=== PATIENT | female | born 1960 | race Hispanic/Latino ===

== ENCOUNTER → 2022-07-23 09:00 | Outpatient (CLI) | payer OTHER, SELFPAY ==
[2022-07-24 04:26] LABS: Hemoglobin A1C% w Est Avg Glu 5.5 % (4.0-6.0)
[2022-07-24 04:41] LABS: Alanine Aminotransferase 21 IU/L (<35); Albumin 4.4 g/dL (3.5-5.0); Albumin Globulin Ratio 1.5 (1.0-2.8); Alkaline Phosphatase 80 U/L (38-126); Aspartate Aminotransferase 26 IU/L (14-36); BUN Creatinine Ratio 17.2 (6-22); Bilirubin Total 0.6 mg/dL (0.2-1.3); Blood Urea Nitrogen 15 mg/dL (7-17); Calcium 9.5 mg/dL (8.4-10.2); Carbon Dioxide 27 mmol/L (22-32); Chloride 104 mmol/L (98-107); Cholesterol 239 mg/dL (140-199); Estimated Glomerular Filt Rate > 60 mL/min (>60); Glucose 97 mg/dL (80-110); HDL Cholesterol 59 mg/dL (40-60); HEMOLYSIS < 15 (0-50); LDL Cholesterol Calculated 163 mg/dL (<100); Potassium 4.2 mmol/L (3.4-5.1); Sodium 139 mmol/L (137-145); Total Protein 7.4 g/dL (6.3-8.2); Triglycerides 85 mg/dL (35-150)
== END ==
PROVIDERS: PCP Physician Assistant; Visit Provider Physician Assistant
DX: I10 Essential (primary) hypertension (principal); Z13.1 Encounter for screening for diabetes mellitus; Z13.220 Encounter for screening for lipoid disorders
CPT/HCPCS: 80053; 80061; 83036

== ENCOUNTER → 2023-08-02 08:24 | Outpatient (CLI) | payer OTHER, SELFPAY ==
[2023-08-02 19:49] LABS: Add Manual Diff / Slide Review NO; Basophils Absolute Auto 0 /uL (0-100); Basophils Percent Auto 0.7 % (0-2); Eosinophils Absolute Auto 100 /uL (0-450); Eosinophils Percent Auto 3.2 % (2-4); Hemoglobin 13.9 g/dL (12.0-16.0); Lymphocytes Absolute Auto 1100 /uL (1100-4500); Lymphocytes Percent Auto 28.7 % (25-40); Mean Corpuscular HGB Conc 33.9 % (30-36); Mean Corpuscular Hemoglobin 31.7 PG (26-34); Mean Corpuscular Volume 93.7 fL (80-100); Monocytes Absolute Auto 300 /uL (0-900); Monocytes Percent Auto 8.5 % (3-14); Neutrophils Absolute Auto 2200 /uL (1500-7000); Neutrophils Percent Auto 58.9 % (50-75); Platelet Count 206 X10^3/uL (150-400); Red Blood Cell Count 4.38 X10^6/uL (4.0-5.2); Red Cell Distribution Width 12.7 % (11.6-14.8); White Blood Cell Count 3.8 X10^3/uL (4.5-11.0)
[2023-08-02 19:52] LABS: Alanine Aminotransferase 24 IU/L (<35); Albumin 4.6 g/dL (3.5-5.0); Albumin Globulin Ratio 1.3 (1.0-2.8); Alkaline Phosphatase 88 U/L (38-126); Aspartate Aminotransferase 29 IU/L (14-36); BUN Creatinine Ratio 20.5 (6-22); Bilirubin Total 0.5 mg/dL (0.2-1.3); Blood Urea Nitrogen 16 mg/dL (7-17); Carbon Dioxide 28 mmol/L (22-32); Chloride 105 mmol/L (98-107); Cholesterol 251 mg/dL (140-199); Estimated Glomerular Filt Rate > 60 mL/min (>60); Globulin 3.5 g/dL (1.7-4.1); Glucose 97 mg/dL (80-110); HDL Cholesterol 73 mg/dL (40-60); HEMOLYSIS < 15 (0-50); LDL Cholesterol Calculated 152 mg/dL (<100); Potassium 3.8 mmol/L (3.4-5.1); Sodium 141 mmol/L (137-145); Total Protein 8.1 g/dL (6.3-8.2); Triglycerides 128 mg/dL (35-150)
== END ==
PROVIDERS: PCP Physician Assistant; Visit Provider Physician Assistant
DX: I10 Essential (primary) hypertension (principal); Z13.6 Encounter for screening for cardiovascular disorders; Z79.899 Other long term (current) drug therapy
CPT/HCPCS: 80053; 80061; 85025

== ENCOUNTER → 2024-08-25 08:10 | Outpatient (CLI) | payer OTHER, SELFPAY ==
[2024-08-25 19:02] LABS: Alanine Aminotransferase 26 IU/L (<35); Albumin 4.5 g/dL (3.5-5.0); Albumin Globulin Ratio 1.4 (1.0-2.8); Alkaline Phosphatase 89 U/L (38-126); Aspartate Aminotransferase 34 IU/L (14-36); Bilirubin Total 0.6 mg/dL (0.2-1.3); Blood Urea Nitrogen 17 mg/dL (7-17); Calcium 9.9 mg/dL (8.4-10.2); Carbon Dioxide 27 mmol/L (22-32); Chloride 104 mmol/L (98-107); Cholesterol 261 mg/dL (140-199); Estimated Glomerular Filt Rate > 60 mL/min (>60); Globulin 3.3 g/dL (1.7-4.1); Glucose 97 mg/dL (80-110); HDL Cholesterol 73 mg/dL (40-60); HEMOLYSIS 27 (0-50); LDL Cholesterol Calculated 171 mg/dL (<100); Potassium 4.5 mmol/L (3.4-5.1); Sodium 138 mmol/L (137-145); Total Protein 7.8 g/dL (6.3-8.2); Triglycerides 86 mg/dL (35-150)
[2024-08-25 19:31] LABS: TSH w/ Reflex to FT4 5.94 uIU/mL (0.47-4.68)
[2024-08-25 20:10] LABS: Free T4, Direct Thyroxine 1.05 ng/dL (0.78-2.19)
[2024-08-26 19:26] LABS: Hep C Virus Ab w/Reflex Quant NEGATIVE s/c (NEGATIVE)
== END ==
PROVIDERS: PCP Physician Assistant; Referring Provider Physician Assistant; Visit Provider Physician Assistant
DX: Z00.01 Encounter for general adult medical examination with abnormal findings (principal); I10 Essential (primary) hypertension; D72.819 Decreased white blood cell count, unspecified; Z12.11 Encounter for screening for malignant neoplasm of colon; E78.00 Pure hypercholesterolemia, unspecified; Z11.59 Encounter for screening for other viral diseases; F41.9 Anxiety disorder, unspecified; F51.01 Primary insomnia
CPT/HCPCS: 80053; 80061; 84439; 84443; 86803

== ENCOUNTER → 2024-12-11 14:14 | Outpatient (CLI) | payer OTHER, SELFPAY | PROVIDERS: PCP Physician Assistant; Visit Provider Family Medicine | DX: R10.9 Unspecified abdominal pain (principal); R30.0 Dysuria | CPT/HCPCS: 87086 ==

== ENCOUNTER → 2024-12-13 08:18 | Outpatient (CLI) | payer OTHER, SELFPAY ==
[2024-12-13 21:50] LABS: Add Manual Diff / Slide Review NO; Basophils Absolute Auto 0 /uL (0-100); Basophils Percent Auto 0.4 % (0-2); Eosinophils Absolute Auto 100 /uL (0-450); Eosinophils Percent Auto 1.8 % (2-4); Hemoglobin 12.3 g/dL (12.0-16.0); Lymphocytes Absolute Auto 900 /uL (1100-4500); Mean Corpuscular HGB Conc 33.4 % (30-36); Mean Corpuscular Hemoglobin 31.3 PG (26-34); Mean Corpuscular Volume 93.9 fL (80-100); Monocytes Absolute Auto 400 /uL (0-900); Monocytes Percent Auto 8.2 % (3-14); Neutrophils Absolute Auto 3900 /uL (1500-7000); Neutrophils Percent Auto 72.6 % (50-75); Platelet Count 327 X10^3/uL (150-400); Red Blood Cell Count 3.94 X10^6/uL (4.0-5.2); Red Cell Distribution Width 12.5 % (11.6-14.8); White Blood Cell Count 5.3 X10^3/uL (4.5-11.0)
[2024-12-13 22:13] LABS: Alanine Aminotransferase 22 IU/L (<35); Albumin 4.5 g/dL (3.5-5.0); Albumin Globulin Ratio 1.6 (1.0-2.8); Alkaline Phosphatase 111 U/L (38-126); Aspartate Aminotransferase 45 IU/L (14-36); BUN Creatinine Ratio 19.2 (6-22); Bilirubin Total 0.5 mg/dL (0.2-1.3); Blood Urea Nitrogen 19 mg/dL (7-17); Calcium 9.5 mg/dL (8.4-10.2); Carbon Dioxide 26 mmol/L (22-32); Chloride 108 mmol/L (98-107); Estimated Glomerular Filt Rate > 60 mL/min (>60); Globulin 2.9 g/dL (1.7-4.1); Glucose 101 mg/dL (80-110); HEMOLYSIS 28 (0-50); Potassium 3.6 mmol/L (3.4-5.1); Sodium 143 mmol/L (137-145); Total Protein 7.4 g/dL (6.3-8.2)
[2024-12-13 22:16] LABS: Cholesterol 215 mg/dL (140-199); HDL Cholesterol 57 mg/dL (40-60); LDL Cholesterol Calculated 134 mg/dL (<100); Triglycerides 122 mg/dL (35-150)
[2024-12-13 22:19] LABS: D Dimer 5059 ng/ml (<500)
[2024-12-13 22:34] LABS: TSH w/ Reflex to FT4 4.67 uIU/mL (0.47-4.68)
== END ==
PROVIDERS: PCP Physician Assistant; Visit Provider Family Medicine
DX: C53.9 Malignant neoplasm of cervix uteri, unspecified (principal); R10.9 Unspecified abdominal pain; R22.42 Localized swelling, mass and lump, left lower limb; R30.0 Dysuria; R79.89 Other specified abnormal findings of blood chemistry; E78.00 Pure hypercholesterolemia, unspecified
CPT/HCPCS: 80053; 80061; 84443; 85025; 85379

== ENCOUNTER 2024-12-15 14:04 | Emergency (ER) | payer OTHER, SELFPAY ==
[2024-12-15] VITALS (20 sets, daily range): BP systolic 144–179; BP diastolic 67–84; PULSE 58–96; RESP 9–25; TEMP 36.6; O2SAT 95–100
--- NOTE | 2024-12-15 15:01 | DI.US.S_ITS ---
PROCEDURE: US PERIPH VENOUS LOW EXTREM LT INDICATIONS: PAIN AND D-DIMER >5000 TECHNIQUE: Real-time imaging, as well as color and pulse Doppler interrogation, were performed of the lower extremity deep veins from the inguinal ligament to the popliteal fossa, with documentation of the visualized calf veins. COMPARISON: None. FINDINGS: The common femoral, femoral, popliteal, and the visualized calf veins are normally compressible, and free of intraluminal thrombus. Color and pulse Doppler demonstrate normal phasic intraluminal flow. There is normal augmentation response to distal compression maneuver. Multiple enlarged left groin lymph nodes are seen, with the largest measuring 4.1 x 1.6 x 1.9 cm, with increased vascularity. IMPRESSION: No findings of lower extremity deep venous thrombosis. Enlarged left groin lymph nodes noted. Dictated by: Rodney Lopez M.D. on 12/15/2024 at 15:05 Approved by: Rodney Lopez M.D. on 12/15/2024 at 15:06
--- NOTE | 2024-12-15 15:27 | PC.NURSE ---
Patient here in department from [facility] where she had labs done and found her to have ddimer of 5000+. Patient first went to the [facility] for urine test on Wednesday, on wednesday she went back for blood work because she was experiencing left leg and pelvic pain. hx of cervical cancer
--- NOTE | 2024-12-15 17:16 | DI.CT.S_ITS ---
PROCEDURE: CT ANGIO CHEST PE PROTOCOL INDICATIONS: very high dimer with sob TECHNIQUE: After the administration of intravenous contrast, 2 mm thick sections acquired from the pulmonary apices to the posterior costophrenic angles. 3-dimensional maximum intensity projection (MIP) coronal and sagittal reformats were then acquired through the thorax. For radiation dose reduction, the following was used: automated exposure control, adjustment of mA and/or kV according to patient size. COMPARISON: None. FINDINGS: Image quality: Diagnostic. Pulmonary arteries: Pulmonary arteries are normal in size, and demonstrate no intraluminal filling defects to suggest central pulmonary embolism. Lower Neck: No enlarged lymph nodes. Thyroid: No thyroid nodules which require sonographic follow up, per consensus guidelines. Axillae: No enlarged lymph nodes. Chest Wall: Unremarkable. Bilateral breast implants. Bones: Visualized osseous structures appear intact without acute fracture or focal destructive lesion. No acute compression fractures of the imaged spine. Lungs and Pleura: No pneumothorax or pleural effusions. No consolidation or suspicious nodules. Bibasilar atelectasis. No septal thickening or nodularity. Heart: Heart size is normal. No pericardial effusion. Thoracic Vessels: No aortic aneurysm. Mediastinum and [place]: No enlarged lymph nodes. Esophagus: No wall thickening. No hiatal hernia. Upper Abdomen: Visualized upper abdomen solid organs and bowel loops appear normal. IMPRESSION: No pulmonary embolus. No acute cardiopulmonary process. Dictated by: Rickie Sloan M.D. on 12/15/2024 at 19:35 Approved by: Rickie Sloan M.D. on 12/15/2024 at 19:40
--- NOTE | 2024-12-15 17:16 | EKG_ITS ---
[address] [address] Test Date: 2024-12-15 Pat Name: María Elena Velez Department: [facility] Room: Gender: Female Surgery Nurse: JASS : 1960 Requested By: Order Number: [id number] Reading MD: Manolo Artis MD Measurements Intervals [place] Rate: 64 P: 47 MI: 148 QRS: 52 QRSD: 88 T: 13 QT: 392 QTc: 404 Interpretive Statements Normal sinus rhythm Possible Anterior infarct , age undetermined Electronically Signed On 12-15-2024 20:55:44 PST by Manolo Artis MD
[2024-12-15 17:26] LABS: Add Manual Diff / Slide Review NO; Basophils Absolute Auto 0 /uL (0-100); Basophils Percent Auto 0.5 % (0-2); Eosinophils Absolute Auto 100 /uL (0-450); Eosinophils Percent Auto 0.9 % (2-4); Hematocrit 37.9 % (36-46); Hemoglobin 12.6 g/dL (12.0-16.0); Lymphocytes Absolute Auto 1000 /uL (1100-4500); Lymphocytes Percent Auto 15.6 % (25-40); Mean Corpuscular HGB Conc 33.2 % (30-36); Mean Corpuscular Hemoglobin 31.1 PG (26-34); Mean Corpuscular Volume 93.9 fL (80-100); Monocytes Absolute Auto 600 /uL (0-900); Monocytes Percent Auto 8.9 % (3-14); Neutrophils Absolute Auto 4800 /uL (1500-7000); Neutrophils Percent Auto 74.1 % (50-75); Platelet Count 335 X10^3/uL (150-400); Red Blood Cell Count 4.04 X10^6/uL (4.0-5.2); Red Cell Distribution Width 12.3 % (11.6-14.8); White Blood Cell Count 6.4 X10^3/uL (4.5-11.0)
[2024-12-15 17:32] LABS: Alanine Aminotransferase 28 IU/L (<35); Albumin 4.5 g/dL (3.5-5.0); Albumin Globulin Ratio 1.3 (1.0-2.8); Alkaline Phosphatase 111 U/L (38-126); Aspartate Aminotransferase 50 IU/L (14-36); BUN Creatinine Ratio 23.2 (6-22); Bilirubin Total 0.4 mg/dL (0.2-1.3); Blood Urea Nitrogen 22 mg/dL (7-17); Calcium 9.4 mg/dL (8.4-10.2); Carbon Dioxide 22 mmol/L (22-32); Chloride 106 mmol/L (98-107); Creatine Kinase 65 U/L (30-135); Estimated Glomerular Filt Rate > 60 mL/min (>60); Globulin 3.5 g/dL (1.7-4.1); Glucose 100 mg/dL (80-110); HEMOLYSIS < 15 (0-50); Lipase 62 U/L (23-300); Potassium 3.7 mmol/L (3.4-5.1); Sodium 139 mmol/L (137-145)
--- NOTE | 2024-12-15 17:39 | DI.CT.S_ITS ---
PROCEDURE: CT ABDOMEN PELVIS W CON INDICATIONS: hx urterine cancer left lower quad pain TECHNIQUE: After the administration of intravenous contrast, axial sections acquired from the lung bases to the pubic symphysis. Coronal and sagittal reformats were performed. For radiation dose reduction, the following was used: automated exposure control, adjustment of mA and/or kV according to patient size. COMPARISON: None. FINDINGS: Image quality: Diagnostic. Lower Chest: Bibasilar atelectasis. Heart size is normal. ABDOMEN: Liver: Innumerable hepatic hypodensities are noted. These are not completely characterized. Gallbladder: No radiopaque gallstones or wall thickening. Biliary ducts: No biliary dilation. Pancreas: No ductal dilation. Spleen: Size is within normal limits. Adrenal Glands: No adrenal nodules. Kidneys and Ureters: Right kidney is normal in appearance. No hydronephrosis. Right ureter is normal. There is moderate left hydroureteronephrosis with perinephric stranding. No obstructing stone seen. However, distal ureter is encased by suspicious left pelvic sidewall adenopathy which appears ill-defined and contiguous with the left lateral wall of the abnormal appearing enlarged uterus. There is also delayed nephrogram of the left kidney compatible with obstruction. Stomach and Bowel: Moderate colonic stool burden. No evidence for small bowel obstruction or associated inflammatory changes. Colonic diverticula of the distal descending and sigmoid colon with mild wall thickening and inflammatory stranding. Normal appendix. Peritoneum: Small volume scattered ascites throughout the abdomen and pelvis. Extensive retroperitoneal adenopathy. Mild periportal adenopathy. Ventral Wall: No significant ventral hernia. Abdominal Nodes: Scattered prominent mesenteric lymph nodes. Peritoneal/omental caking compatible with peritoneal carcinomatosis. Vessels: Aorta and inferior vena cava are normal in size. PELVIS: Pelvic Organs: Heterogeneous, enlarged uterus with irregular appearance of the lower uterine segment and cervix. Findings are more pronounced on the left side with contiguous extension to multiple pelvic side wall lymph nodes. Irregular soft tissue density along the left pelvic sidewall which appears to encase the distal left ureter. There is upstream obstruction as described above. Bladder: No bladder wall thickening, accounting for underdistention. Pelvic Nodes: Scattered pelvic lymphadenopathy. Miscellaneous: No inguinal hernias are seen. Bones: No aggressive osseous abnormality. Visualized osseous structures appear intact without acute fracture or focal destructive lesion. No acute compression fractures of the imaged spine. IMPRESSION: Abnormal, enlarged appearance of the uterus most pronounced in the left lower uterine segment and cervix with ill-defined soft tissue component extending contiguously with the left pelvis and suspected left pelvic sidewall lymphadenopathy. This soft tissue density appears to encase the distal left ureter with associated moderate upstream left hydroureteronephrosis. Findings are compatible with reported history of uterine cancer with numerous findings consistent with metastatic pelvic sidewall adenopathy, retroperitoneal adenopathy, and suspected hepatic metastatic lesions. Peritoneal carcinomatosis also visualized. Colonic diverticulosis with possible mild acute diverticulitis of the distal descending and sigmoid colon. No evidence for perforation or abscess formation. Findings were discussed with Dr. Rodríguez at 19:50hrs. Dictated by: Rickie Sloan M.D. on 12/15/2024 at 19:40 Approved by: Rickie Sloan M.D. on 12/15/2024 at 19:52
[2024-12-15 17:43] LABS: NT-proBNP (BNP-Adult 18+) 123 pg/mL (<125); Troponin I < 0.012 ng/mL (0.01-0.034)
--- NOTE | 2024-12-15 17:47 | ED_ITS ---
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 She has a history of uterine cancer, hypertension presenting to day with left leg pain. She reports that when she walks a lot she gets pain. Sometimes she reports that there swelling it gets better with ibuprofen. Denies any abdominal pain nausea or vomiting. She would outpatient D-dimer done which was 5000 sent here for rule out DVT. She denies any chest pain or palpitations. Sometimes she does have shortness of breath with the exertion. She sometimes feels like her abdomen is bloated Related Data Previous Rx's Medication Instructions Recorded losartan 25 mg tablet 25 mg PO DAILY #90 tabs 09/20/24 amoxicillin 875 mg-potassium 1 tab PO BID for infection #20 tabs 12/11/24 clavulanate 125 mg tablet trazodone 50 mg tablet See Rx Instructions .Route 12/11/24 .COMPLEX #30 tabs Allergies Allergy/AdvReac Type Severity Reaction Status Date / Time No Known Drug Allergies Allergy Verified 12/11/24 10:00 Patient History <Tracy Meyers DO - Last Filed: 12/16/24 08:02> Medical History (Updated 12/15/24 @ 22:02 by Eneida Rodríguez DO) Postmenopausal bleeding Mass of uterine cervix determined by ultrasound History of transfusion Encounter for vitamin deficiency screening Screening for diabetes mellitus Screening for thyroid disorder Screening for cardiovascular condition Routine screening for STI (sexually transmitted infection) Screening for colon cancer Encounter for screening mammogram for malignant neoplasm of breast Encounter for general adult medical examination w/o abnormal findings Surgical History (Updated 07/03/21 @ 09:21 by Dasia Gaspar CMA) H/O abdominal surgery H/O eye surgery History of cosmetic surgery H/O: Social History Smoking Status: Never smoker Smoking Status: Never smoker Exam <Tracy Meyers DO - Last Filed: 12/16/24 08:02> Initial Vital Signs Initial Vital Signs: Vital Signs Temperature 97.8 F 12/15/24 14:22 Pulse Rate 84 12/15/24 14:22 Respiratory Rate 16 12/15/24 14:22 Blood Pressure 161/78 H 12/15/24 14:22 Pulse Oximetry 100 12/15/24 14:22 Oxygen Delivery Method Room Air 12/15/24 14:22 <Eneida Rodríguez DO - Last Filed: 12/16/24 06:31> Initial Vital Signs Initial Vital Signs: Vital Signs Temperature 97.8 F 12/15/24 14:22 Pulse Rate 84 12/15/24 14:22 Respiratory Rate 16 12/15/24 14:22 Blood Pressure 161/78 H 12/15/24 14:22 Pulse Oximetry 100 12/15/24 14:22 Oxygen Delivery Method Room Air 12/15/24 14:22 Course <DO Bernard Larson Last Filed: 12/16/24 08:02> Orders Ordered: Discontinued Medications Ketorolac Tromethamine (Ketorolac 30 Mg/Ml Vial) 15 mg IV NOW ONE Stop: 12/15/24 17:49 Last Admin: 12/15/24 18:12 Dose: 15 mg Documented By: CTS Vital Signs Vital signs: Vital Signs - 8 hr 12/15/24 23:00 Pulse Rate 58 L Respiratory Rate 14 Pulse Oximetry 99 <DO Bernard Dillon Last Filed: 12/16/24 06:31> Orders Ordered: Discontinued Medications Ketorolac Tromethamine (Ketorolac 30 Mg/Ml Vial) 15 mg IV NOW ONE Stop: 12/15/24 17:49 Last Admin: 12/15/24 18:12 Dose: 15 mg Documented By: CTS Vital Signs Vital signs: Vital Signs - 8 hr 12/15/24 23:00 Pulse Rate 58 L Respiratory Rate 14 Pulse Oximetry 99 MDM - SOB/Dyspnea <DO Bernard Larson Last Filed: 12/16/24 08:02> Lab Data 12/15/24 15:20 12/15/24 15:20 Labs: Lab Results 12/15/24 Range/Units 15:20 WBC 6.4 (4.5-11.0) X10^3/uL RBC 4.04 (4.0-5.2) X10^6/uL Hgb 12.6 (12.0-16.0) g/dL Hct 37.9 (36-46) % MCV 93.9 (80-100) fL MCH 31.1 (26-34) PG MCHC 33.2 (30-36) % RDW 12.3 (11.6-14.8) % Plt Count 335 (150-400) X10^3/uL Neut % (Auto) 74.1 (50-75) % Lymph % (Auto) 15.6 L (25-40) % Story % (Auto) 8.9 (3-14) % Eos % (Auto) 0.9 L (2-4) % Baso % (Auto) 0.5 (0-2) % Neut # (Auto) 4800 (8893-9886) /uL Lymph # (Auto) 1000 L (4511-8861) /uL Story # (Auto) 600 (0-900) /uL Eos # (Auto) 100 (0-450) /uL Baso # (Auto) 0 (0-100) /uL Sodium 139 (137-145) mmol/L Potassium 3.7 (3.4-5.1) mmol/L Chloride 106 (98-107) mmol/L Carbon Dioxide 22 (22-32) mmol/L BUN 22 H (7-17) mg/dL Creatinine 0.95 (0.52-1.04) mg/dL Estimated GFR > 60 (>60) mL/min BUN/Creatinine Ratio 23.2 H (6-22) Glucose 100 (80-110) mg/dL Calcium 9.4 (8.4-10.2) mg/dL Total Bilirubin 0.4 (0.2-1.3) mg/dL AST 50 H (14-36) IU/L ALT 28 (<35) IU/L Alkaline Phosphatase 111 (38-126) U/L Total Creatine Kinase 65 (30-135) U/L Troponin I < 0.012 (0.01-0.034) ng/mL NT-Pro-B Natriuret Pep 123 (<125) pg/mL Total Protein 8.0 (6.3-8.2) g/dL Albumin 4.5 (3.5-5.0) g/dL Globulin 3.5 (1.7-4.1) g/dL Albumin/Globulin Ratio 1.3 (1.0-2.8) Lipase 62 (23-300) U/L [facility] decision making narrative: Patient is 64-year-old female Andorran-speaking history of uterine cancer presenting today with left lower quadrant hip pain. Sent to the ED due to elevated D-dimer of 5000. Denies any chest pain or shortness of breath. Really no pain with movement in her left hip. Abdomen is soft nontender Blood work has been reviewed overall reassuring Ultrasound was negative for DVT Discussion with patient with history of cancer need for further testing such as CT angio and abdominal CT Patient was signed out to Dr. Rodríguez CT imaging pending <Eneida Rodríguez, DO - Last Filed: 12/16/24 06:31> Lab Data Labs: Lab Results 12/15/24 Range/Units 15:20 WBC 6.4 (4.5-11.0) X10^3/uL RBC 4.04 (4.0-5.2) X10^6/uL Hgb 12.6 (12.0-16.0) g/dL Hct 37.9 (36-46) % MCV 93.9 (80-100) fL MCH 31.1 (26-34) PG MCHC 33.2 (30-36) % RDW 12.3 (11.6-14.8) % Plt Count 335 (150-400) X10^3/uL Neut % (Auto) 74.1 (50-75) % Lymph % (Auto) 15.6 L (25-40) % Story % (Auto) 8.9 (3-14) % Eos % (Auto) 0.9 L (2-4) % Baso % (Auto) 0.5 (0-2) % Neut # (Auto) 4800 (6536-9802) /uL Lymph # (Auto) 1000 L (0634-5982) /uL Story # (Auto) 600 (0-900) /uL Eos # (Auto) 100 (0-450) /uL Baso # (Auto) 0 (0-100) /uL Sodium 139 (137-145) mmol/L Potassium 3.7 (3.4-5.1) mmol/L Chloride 106 (98-107) mmol/L Carbon Dioxide 22 (22-32) mmol/L BUN 22 H (7-17) mg/dL Creatinine 0.95 (0.52-1.04) mg/dL Estimated GFR > 60 (>60) mL/min BUN/Creatinine Ratio 23.2 H (6-22) Glucose 100 (80-110) mg/dL Calcium 9.4 (8.4-10.2) mg/dL Total Bilirubin 0.4 (0.2-1.3) mg/dL AST 50 H (14-36) IU/L ALT 28 (<35) IU/L Alkaline Phosphatase 111 (38-126) U/L Total Creatine Kinase 65 (30-135) U/L Troponin I < 0.012 (0.01-0.034) ng/mL NT-Pro-B Natriuret Pep 123 (<125) pg/mL Total Protein 8.0 (6.3-8.2) g/dL Albumin 4.5 (3.5-5.0) g/dL Globulin 3.5 (1.7-4.1) g/dL Albumin/Globulin Ratio 1.3 (1.0-2.8) Lipase 62 (23-300) U/L ECG Data Attestation: I personally reviewed and interpreted this ECG as follows: Interpretation: EKG shows sinus rhythm rate of 64 NE 148 QRS 88 QTC of 404.? No acute ST changes. MDM Narrative Medical decision making narrative: Patient is 64-year-old female Andorran-speaking history of uterine cancer presenting today with left lower quadrant hip pain. Sent to the ED due to elevated D-dimer of 5000. Denies any chest pain or shortness of breath. Really no pain with movement in her left hip. Abdomen is soft nontender Blood work has been reviewed overall reassuring Ultrasound was negative for DVT Discussion with patient with history of cancer need for further testing such as CT angio and abdominal CT Patient was signed out to Dr. Rodríguez CT imaging pending. 12/15/2024 Dr. Rodríguez, signed out to myself by Dr. Meyers. Patient is [place] speaking with a history of uterine cancer presents with left lower quadrant pain and elevated D-dimer. Patient had DVT ultrasound which was negative and had CT angio and abdomen to evaluate for pulmonary embolism or other clot. Patient signed out to myself while imaging was pending. 64-year-old female with a history of cervical cancer sounds like she was not had follow up in many years had a visit on 12/11/[address] imaging of the abdomen ordered but has not been obtained yet. Labs show normal CBC, normal creatinine, LFTs, negative troponin. DVT ultrasound shows no findings of lower extremity DVT enlarged left groin lymph node. CT of the chest shows no PE, no acute cardiopulmonary process. CT abdomen pelvis does show uterine cancer with metastatic disease does not appear to have some involvement around the left ureter with some obstructive component. Results were called to myself by radiology report notes abnormal enlarged appearance of the uterus most pronounced left lower uterine segment cervix with ill-defined soft tissue component into the left pelvis and suspected left pelvic sidewall lymphadenopathy appears to encase the distal left ureter with associated moderate hydro with left hydroureteronephrosis compatible with a reported history of uterine/cervical cancer consistent with a metastatic pelvic sidewall adenopathy retroperitoneal adenopathy and suspect hepatic metastatic lesions with peritoneal carcinomatosis also visualized. Colonic diverticulosis with mild acute mild diverticulitis distal descending sigmoid colon no evidence of prefer abscess formation. EKG shows sinus rhythm rate of 64 NE 148 QRS 88 QTC of 404. No acute ST changes. Discussed with patient per her it sounds like she thought her cancer was gone, unclear if she was in remission but sounds like she did not have any additional surveillance after 2018. She notes she was having regular primary care follow- up. Discussed with patient we will update her after I speak with Oncology and Urology to review the plan. She expresses her understanding. This was all done through the maintenance representative. Call out to oncology at [address] Wood at 9:31 p.m., was seeing Dr. Farrell, last seen late 2017. Recommended concurrent chemo/rads and cisplatin with radiation. [address] Pereira did brachytherapy completed August 2018. Also seen with radiation oncology also. T2N1 tumor at the time, recommended follow up and had no evidence of disease but needed surveillance. Dr. Wood will try to get her in with one of her partners as quickly as possible. Reviewed her hydro we will also consult with Urology but can likely follow up outpatient to have this treated as well. Urology paged. Spoke with Dr. Bishop from Urology asked that we send patient's contact information and will evaluate and follow up with the patient and refer as needed to more specialized Urology. Updated patient after calls, reviewed all of her findings at length with the maintenance representative her son was on phone for these discussions. Patient expressed understanding plan for follow-up. Discharge Plan Departure Patient Disposition: Home Clinical Impression: Hydronephrosis of left kidney Activity Restrictions/Additional Instructions: Your workup today shows an abnormal enlarged appearance of your uterus, of the left lower uterine segment and cervix that extends towards the left distal ureter and shows some moderate hydroureteronephrosis or swelling. There is adenopathy in the abdomen as well as suspected hepatic lesions. I spoke with Oncology, Dr. Wood they will be reaching out to set up follow up hopefully in the next week. Contacts included below as well please call them if you have not heard from them by Wednesday afternoon. I also spoke with Urology regarding the swelling to the kidney, they will try to follow up with you in the next week as well. Please return for fevers, new abdominal back or flank pain, chest pain or shortness of breath, persistent vomiting, new swelling of your extremities or other new or concerning changes. Prescriptions: No Action losartan 25 mg tablet 25 mg PO DAILY Qty: 90 4RF amoxicillin-pot clavulanate 875-125 mg tablet 1 tab PO BID Qty: 20 0RF trazodone 50 mg tablet See Rx Instructions .ROUTE .COMPLEX Qty: 30 0RF Rx Instructions: 1/2 po QHS for 3 nights, then increase to 1 tab po QHS for 3 nights, then increase to 2 tabs po QHS Referrals: Emerson Wood MD [Physician] - Mago Hilliard PA-C [Primary Care Provider] - Dilip Bishop MD [Physician] - Stand Alone Forms: Patient Portal/API/Survey
[2024-12-15] MEDS: KETOROLAC 30 MG/ML VIAL 15 MG IV (18:12)
--- NOTE | 2024-12-15 23:30 | PC.NURSE ---
Pt lying in ED stretcher reading and watching tablet. States no complaints at this time.
--- NOTE | 2024-12-16 01:30 | PC.NURSE ---
Pt resting quietly with eyes closed, resps even and not labored. No distress noted at this time.
--- NOTE | 2024-12-16 03:35 | PC.NURSE ---
No change in patient condition or status. Pt sitting in ED stretcher reading. No distress noted at this time. No complaints or requests at this time.
== END 2024-12-16 06:20 | disposition home or self-care (01) ==
PROVIDERS: Emergency Provider Emergency Medicine; PCP Physician Assistant
DX: N13.30 Unspecified hydronephrosis (principal); R79.89 Other specified abnormal findings of blood chemistry; I10 Essential (primary) hypertension; Z85.42 Personal history of malignant neoplasm of other parts of uterus; R06.02 Shortness of breath
CPT/HCPCS: 36415; 71275; 74177; 80053; 82550; 83690; 83880; 84484; 85025; 93005; 93010; 93971; 96374; 99284; J1885; Q9967